=== PATIENT | female | born 1960 | race African-American/Black ===

== ENCOUNTER 2018-01-02 13:22 | Emergency (ER) | payer OTHER ==
[~2018-01-02] VITALS: Ht 172.7 cm; Wt 69.1 kg
[2018-01-02 14:03] LABS: BASOPHIL (%) 0.2 % (0-1); EOSINOPHIL (%) 1.2 % (0-5); EOSINOPHIL COUNT 0.1 K/uL (0-0.3); HEMATOCRIT 40.1 % (36.0-46.0); HEMOGLOBIN 13.7 G/DL (11.9-15.5); IMMATURE GRANULOCYTE (%) 0.4 % (0.0-0.7); LYMPHOCYTE (%) 13.3 % (15-42); LYMPHOCYTE COUNT 1.1 K/uL (1.0-2.8); MCH 30.2 PG (29.0-34.0); MCHC 34.2 G/DL (30.0-36.0); MCV 88.5 FL (83-99); MONOCYTE (%) 8.6 % (3-12); MONOCYTE COUNT 0.7 K/uL (0-0.8); NEUTROPHIL (%) 76.3 % (45-76); NEUTROPHIL COUNT 6.1 K/uL (1.8-6.4); PLATELET COUNT 162 K/uL (156-360); RBC DIS.WIDTH-CV 12.5 % (11.8-14.6); RED BLOOD COUNT 4.53 M/uL (3.80-5.20)
[2018-01-02 14:13] LABS: ALBUMIN 4.1 g/dL (3.2-4.8); CHLORIDE 103 mEq/L (99-109); POTASSIUM 3.7 mEq/L (3.7-5.4); SODIUM 138 mEq/L (136-147)
[2018-01-02 14:15] LABS: GLUCOSE 96 mg/dL (70-99); TOTAL PROTEIN 7.7 g/dL (6.4-8.3)
[2018-01-02 14:17] LABS: TOTAL BILIRUBIN 0.5 mg/dL (0.0-1.0)
[2018-01-02 14:19] LABS: ALKALINE PHOSPHATASE 72 IU/L (3-129); CREATININE 0.7 mg/dL (0.6-1.3); GFR ESTIMATE (CALCULATED) > 59 mL/min/
[2018-01-02 14:20] LABS: UREA NITROGEN (BUN) 12 mg/dL (9-23)
[2018-01-02 14:21] LABS: AST (GOT) 22 IU/L (2-34)
[2018-01-02 14:22] LABS: ALT (GPT) 25 IU/L (3-49); LIPASE 5 U/L (1.0-51.0)
[2018-01-02 14:58] LABS: APPEARANCE CLEAR ((CLEAR)); BILIRUBIN NEGATIVE; BLOOD SMALL; COLOR STRAW ((YELLOW)); GLUCOSE (STRIP) NEGATIVE; KETONES NEGATIVE; LEUKOCYTES NEGATIVE; NITRITE NEGATIVE; PROTEIN (STRIP) NEGATIVE; SPECIFIC GRAVITY 1.005 (1.000-1.030); UROBILINOGEN 0.2 MG/DL (0.2-1.0)
[2018-01-02 15:03] LABS: BACTERIA NONE SEEN /HPF; EPITHELIAL CELLS NONE SEEN /HPF; HYALINE CASTS 0-5 /LPF; MUCUS NONE SEEN /LPF; RED BLOOD CELLS 0-5 /HPF (0-5); UCUL ADDED? NO; WHITE BLOOD CELLS NONE SEEN /HPF (0-5)
[2018-01-02 15:33] VITALS: BP 130/74
[2018-01-05] MEDS ORDERED: ACTIVELLA 0.5-1 EACH PO (07:06)
[2018-01-05] MEDS ORDERED: SYNTHROID125 MCG PO (07:06)
[2018-01-05] MEDS ORDERED: BIOTIN1 MG PO (07:07)
[2018-01-05] MEDS ORDERED: MAGNESIUM100 MG PO (07:08)
[2018-01-05] MEDS ORDERED: VITAMIN B122500 MCG PO (07:09)
[2018-01-05] MEDS ORDERED: ASCORBIC ACID100 MG PO (07:09)
== END 2018-01-02 15:35 | disposition left against medical advice (07) ==
LOC: EME 13:22
PROVIDERS: Emergency Medicine
DX: K52.9 Noninfective gastroenteritis and colitis, unspecified (principal); R10.32 Left lower quadrant pain; R14.0 Abdominal distension (gaseous); R53.83 Other fatigue; Z53.20 Procedure and treatment not carried out because of patient's decision for unspecified reasons
CPT/HCPCS: 74177; 80053; 81003; 83690; 85025; 99281; 99284; J7030

== ENCOUNTER → 2018-01-28 | Outpatient (CLI) | payer OTHER ==
[~2018-01-28] VITALS: Ht 172.7 cm; Wt 63.0 kg
[~2018-01-28] MED LIST: ACTIVELLA 0.5-1 EACH PO; ASCORBIC ACID100 MG PO; BIOTIN1 MG PO; MAGNESIUM100 MG PO; SYNTHROID125 MCG PO; VITAMIN B122500 MCG PO
== END | disposition home or self-care (01) ==
LOC: AMB 12:30
PROC: 0DBM8ZX Excision of Descending Colon, Via Natural or Artificial Opening Endoscopic, Diagnostic (ICD-10-PCS; principal; 2018-01-28)
DX: D12.4 Benign neoplasm of descending colon (principal); K56.41 Fecal impaction; K57.30 Diverticulosis of large intestine without perforation or abscess without bleeding
CPT/HCPCS: 88305